=== PATIENT | male | born 1975 | race African-American/Black ===

== ENCOUNTER 2016-05-26 22:26 | Emergency (ER) | payer MEDICAID ==
[~2016-05-26] VITALS: Ht 188 cm; Wt 68.0 kg
[2016-05-26] MEDS ORDERED: ADALAT10 MG ORAL (22:42)
[2016-05-26] MEDS ORDERED: CATAPRES0.1 MG ORAL (22:42)
[2016-05-26] MEDS ORDERED: LOSARTAN POTASS25 MG ORAL (22:42)
[2016-05-26] MEDS ORDERED: HYDROCORTISONE30 G1 TP (22:57)
[2016-05-26] MEDS ORDERED: HYDROXYZINE HCL25 M1 PO (22:57)
[2016-05-26] MEDS ORDERED: CLOTRIMAZOLE15 GM TOPIC (22:57)
[2016-05-26 23:07] VITALS: BP 168/111
[2016-05-26 23:15] VITALS: BP 168/111
--- NOTE | 2016-05-26 23:41 | Emergency Room Report ---
History of Present Illness General Chief Complaint: Skin Rash/Abscess Source: Patient Present Illness HPI Patient is a 40-year-old male who presented after increased generalized itchy skin rash. Rashes noted be more prevalent in trunk region. Patient reported having a markedly itchiness which she was not relieved by Benadryl. Patient had a history of peritoneal dialysis. The patient denied any fever. He denied abdominal pain. He had not been vomiting. Patient recent abdominal surgery. He denied any current medications which are new. Allergies: Coded Allergies: ALBUTEROL (Verified Allergy, Unknown, 05/26/16) Patient History Past Medical History: see triage record Reviewed Nursing Documentation: PMH: Agreed, PSxH: Agreed Nursing Documentation-PMH Past Medical History: No History, Except For Hx Hypertension: Yes - Chronic kidney failure Review of Systems All Other Systems: negative except mentioned in HPI Physical Exam Vital Signs Date Time Temp Pulse Resp B/P Pulse Ox O2 Delivery O2 Flow Rate FiO2 05/26/16 22:33 98.1 83 14 185/130 100 Room Air General Appearance: well appearing, no apparent distress, alert, GCS 15, non- toxic Head: normocephalic, atraumatic ENT: hearing grossly normal, normal voice Neck: full range of motion, supple Respiratory: no respiratory distress, speaking full sentences Musculoskeletal: normal inspection, no calf tenderness Neurologic: normal inspection, alert, oriented x3, responsive, 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 Differential diagnosis included was not limited to Whitfield-Raimundo syndrome, urticaria, erythema multiforme, contact dermatitis. Patient's benign exam and does not appear to require any further imaging or laboratory testing at this time. The patient was noted to have some scrotal lesions which appear to be a similar however he's been giving prescription for antifungal cream. The patient is advised to follow up with primary care doctor in 1-2 days. Patient is advised to return if any worsening condition or if any changes in status that are concerning. The patient was also advised to return if any changes in skin color or fever Last Vital Signs Date Time Temp Pulse Resp B/P Pulse Ox O2 Delivery O2 Flow Rate FiO2 05/26/16 23:15 98.1 70 16 168/111 100 Room Air Status: unchanged Disposition: HOME, SELF-CARE Condition: Stable Scripts Hydrocortisone Acetate 2.5% Oint (HYDROCORTISONE ACETATE 2.5% OINT) Y Oint 30 GM TP DAILY, #30 GM Prov: Moshe Thurston 05/26/16 Clotrimazole* (LOTRIMIN*) 15 Gm Cream..g. 1 APPLIC TOPIC TWICE A DAY, #15 GM Prov: Moshe Thurston 05/26/16 Hydroxyzine Hcl (HYDROXYZINE HCL) 25 Mg Tablet 25 MG PO NEEDED EVERY 6 HR for Itching, #30 TAB Prov: Moshe Thurston 05/26/16 Referrals: NOT CHOSEN [facility]/,REFERRING (PCP) Patient Instructions: Pruritus Moshe Thurston May 26, 2016 23:41
== END 2016-05-26 23:24 | disposition home or self-care (01) ==
LOC: EMR 22:57
DX: R21 Rash and other nonspecific skin eruption (principal)
CPT/HCPCS: 99284

== ENCOUNTER 2016-09-02 21:02 | Inpatient (IN) | payer BC, OTHER ==
[~2016-09-02] VITALS: Ht 188 cm; Wt 65.3 kg
[~2016-09-02 21:02] MED LIST: ADALAT10 MG ORAL; CATAPRES0.1 MG ORAL; CLOTRIMAZOLE15 GM TOPIC; HYDROCORTISONE30 G1 TP; HYDROXYZINE HCL25 M1 PO; LOSARTAN POTASS25 MG ORAL
[2016-09-02] MEDS ORDERED: HYDROmorphone 1mg/ml Carpuject IVP ONE (21:30)
[2016-09-02 21:43] LABS: BASOPHILS % (AUTO) 0.6 % (0.0-2.0); EOSINOPHILS % (AUTO) 1.3 % (0.0-3.0); LYMPHOCYTES % (AUTO) 13.5 % (20.0-45.0); MEAN CORPUSCULAR HEMOGLOBIN 29.9 PG (27.0-31.0); MEAN CORPUSCULAR HGB CONC 33.4 G/DL (32.0-36.0); MEAN CORPUSCULAR VOLUME 89 FL (80-99); MONOCYTES % (AUTO) 4.4 % (1.0-10.0); NEUTROPHILS % (AUTO) 80.1 % (45.0-75.0); PLATELET COUNT 159 K/UL (150-450); RED BLOOD COUNT 4.33 M/UL (4.70-6.10); RED CELL DISTRIBUTION WIDTH 12.9 % (11.6-14.8); WHITE BLOOD COUNT 8.8 K/UL (4.8-10.8)
[2016-09-02 21:51] LABS: INR 1.1 (0.9-1.1); PROTHROMBIN TIME 10.7 SEC (9.30-11.50)
[2016-09-02 21:54] LABS: ALBUMIN/GLOBULIN RATIO 1.3 (1.0-2.7); CALCIUM 9.1 mg/dL (8.6-10.2); CREATININE 7.4 mg/dL (0.7-1.2); GLOMERULAR FILTRATION RATE 10.1 mL/min (>60); POTASSIUM 4.4 mEQ/L (3.4-4.9); TOTAL PROTEIN 6.4 g/dL (6.6-8.7)
[2016-09-02 22:39] VITALS: BP 136/87
[2016-09-02 22:52] LABS: APPEARANCE,URINE CLEAR; KETONES,URINE NEGATIVE (NEGATIVE); LEUKOCYTE ESTERASE ,URINE NEGATIVE (NEGATIVE); NITRITE,URINE NEGATIVE (NEGATIVE); PH,URINE 5 (4.5-8.0); PROTEIN,URINE 2+ (NEGATIVE); UROBILINOGEN,URINE NORMAL MG/DL (0.0-1.0)
[2016-09-02 22:58] LABS: WBC,URINE 0-2 /HPF (0 - 0)
[2016-09-02 22:59] LABS: BACTERIA,URINE FEW /HPF
[2016-09-02] MEDS ORDERED: RENA-VITE TABL0.8 M1 PO (23:45)
[2016-09-03] MEDS ORDERED: Ertapenem 1 GM in NS 55 ML IV ONE (00:15)
[2016-09-03] MEDS ORDERED: Tubing IV Cassette IV ONE (00:18)
[2016-09-03] MEDS ORDERED: Ertapenem (INVanz) Inj ONE (00:18)
[2016-09-03] MEDS ORDERED: NS 55 ML IV ONE (00:18)
[2016-09-03] MEDS ORDERED: HYDROmorphone 1mg/ml Carpuject IVP ONE (00:30)
[2016-09-03 00:36] VITALS: BP 134/83
--- NOTE | 2016-09-03 01:37 | Emergency Room Report ---
History of Present Illness General Chief Complaint: Abdominal Pain Source: Patient Present Illness HPI This is a 41-year-old male with a history of renal failure on peritoneal dialysis. Since been on peritoneal dialysis, he has several complication. He had to have revision of his peritoneal dialysis catheter. He has several episodes of SBP. He presents with chief complaint of abdominal pain. Onset was acute and occurred this evening. This occur after try to do peritoneal dialysis. He said that he could not drain any fluid. Pain was severe. No fever or chills. Henderson nauseous but no vomiting. No diarrhea. Pain is 10 out of 10. Diffuse in nature. Similar to previous episode of peritonitis. Allergies: Coded Allergies: ALBUTEROL (Verified Allergy, Unknown, 05/26/16) Patient History Past Medical History: see triage record, old chart reviewed, renal disease Past Surgical History: other Pertinent Family History: none Social History: Denies: smoking Immunizations: other Reviewed Nursing Documentation: PMH: Agreed, PSxH: Agreed Nursing Documentation-PMH Hx Hypertension: Yes - Chronic kidney failure Hx Dialysis: Yes - PERITONEAL DIALYSIS Review of Systems Eye: Denies: blurred vision, eye pain ENT: Denies: ear pain, nose congestion, throat swelling Respiratory: Denies: cough, shortness of breath Cardiovascular: Denies: chest pain, palpitations Gastrointestinal: Reports: abdominal pain, Denies: diarrhea, nausea, vomiting Musculoskeletal: Denies: back pain, joint pain Skin: Denies: rash Neurological: Denies: headache, numbness Endocrine: Denies: increased thirst, increased urine Hematologic/Lymphatic: Denies: easy bruising All Other Systems: negative except mentioned in HPI Physical Exam Vital Signs Date Time Temp Pulse Resp B/P Pulse Ox O2 Delivery O2 Flow Rate FiO2 09/02/16 20:59 97.2 80 16 128/74 94 Room Air vitals normal Sp02 EP Interpretation: reviewed, normal General Appearance: well appearing, alert, moderate distress - From pain Head: normocephalic, atraumatic Eyes: bilateral eye EOMI, bilateral eye PERRL ENT: hearing grossly normal, normal pharynx Neck: full range of motion, supple, no meningismus Respiratory: chest non-tender, lungs clear, normal breath sounds Cardiovascular #1: regular rate, rhythm, no murmur Gastrointestinal: normal bowel sounds, no mass, no organomegaly, no bruit, non- distended, tenderness - Diffuse in nature Musculoskeletal: back normal, gait/station normal, normal range of motion Psychiatric: mood/affect normal Skin: warm/dry Medical Decision Making Diagnostic Impression: Primary Impression: Abdominal pain Qualified Codes: R10.84 - Generalized abdominal pain Additional Impression: SBP (spontaneous bacterial peritonitis) ER Course Patient with abdominal pain most likely secondary to SBP. He was unable to give us any peritoneal fluid for culture. I was unable to set up in the peritoneal dialysis for antibiotics. IV antibiotics given. Labs unremarkable. Will admit for further workup. Lab Results Impression labs at baseline CT/MRI/US Diagnostic Results CT/MRI/US Diagnostic Results : Imaging Test Ordered: CT abdomen and pelvis Impression Read by radiologist. Small bowel wall thickening and adjacent mesenteric edema. Unremarkable appendix. Gastric wall thickening. Small amount of free fluid. Last Vital Signs Date Time Temp Pulse Resp B/P Pulse Ox O2 Delivery O2 Flow Rate FiO2 09/03/16 00:58 98.2 09/03/16 00:36 80 21 134/83 96 Room Air Status: improved Disposition: ADMITTED INPATIENT Condition: Serious Referrals: [facility],REFERRING (PCP) CARROLL FAM M.D. September 03, 2016 01:37
[2016-09-03 01:58] VITALS: BP 126/77
[2016-09-03] MEDS ORDERED: Zolpidem 5mg tab ORAL PRN (04:15)
[2016-09-03] MEDS: metroNIDAZOLE 500mg 100 ML IVPB SCH ×2 (06:18→06:53)
[2016-09-03] MEDS: Morphine Sulfate 2mg/ml Inj IVP PRN ×3 (06:52→14:37)
[2016-09-03 08:00] VITALS: BP 131/86
--- NOTE | 2016-09-03 08:40 | Diagnostic Imaging Report ---
Indications: Severe lower midline abdominal pain for one day Technique: Continuous helical CT imaging of the abdomen and pelvis was performed with automatic exposure control on a Siemens sensation [address] scanner. Axial, coronal, sagittal images reconstructed at 3 mm slice thickness. No oral or IV contrast was administered per requesting physician's order, despite no contraindications listed. CTDI volume(s): 11 mGy Total DLP: 565 mGy-cm Findings: Comparison: None Lack of oral and IV contrast limits evaluation. Multiple small bowel loops demonstrate varying degrees of distention and fluid content. Mural thickening not excludable. No discrete transition point. Tubular structure apparently emanating from the cecal tip, adjacent to but separate from the terminal ileum measures 8 mm in diameter. Its distal end cannot be discerned. Associated mild mural thickening not excludable. No obvious adjacent stranding. Minimal ascites. Mild diffuse mesenteric edema. Few small intraperitoneal gas bubbles midline anterior lower abdomen/pelvis. No obvious extraluminal loculated fluid collections. Peritoneal dialysis catheter in lower abdomen and pelvis. Apparent mild diffuse mural thickening of urinary bladder. Both kidneys atrophic. Remainder visualized pelvic anatomy demonstrates no other obvious acute abnormality. Lung bases and adjacent pleural surfaces clear. No focal skeletal abnormality identified IMPRESSION: Small bowel findings as described, nonspecific, not overtly obstructive in appearance, favor ileus. Underlying enteritis must be considered. Partial visualization of what may be the appendix, without overt acute inflammatory change. Early/mild acute appendicitis cannot be excluded, however. Recommend repeat CT scan with full oral and IV contrast preparation for more complete evaluation Minimal ascites, diffuse mesenteric edema minimal pneumoperitoneum likely secondary to peritoneal dialysis, catheter for latter in place. Bowel perforation not entirely excludable. See above recommendation. Bilateral renal atrophy compatible with end-stage renal disease. This correlates with [facility] preliminary report.
[2016-09-03] MEDS ORDERED: Vancomycin 1gm/D5W 275ml IVPB ONE ×2 (11:00)
[2016-09-03] MEDS: Losartan 50mg tab ORAL SCH (11:56)
[2016-09-03 12:00] VITALS: BP 155/94
[2016-09-03] MEDS ORDERED: Zosyn 2.25 gm in D5W 55ml IV SCH (13:00)
--- NOTE | 2016-09-03 13:51 | General Progress Note ---
Progress Note Progress Note chart reviewed, pt examined, consult dictated. Impression: spontaneous peritonitis due to peritoneal dialysis, doubt appendicitis. Plan: repeat abdominal CT with oral contrast. Jeff Roldan MD September 03, 2016 13:51
[2016-09-03] MEDS ORDERED: Tubing IV Secondary IV ONE (14:19)
[2016-09-03] MEDS ORDERED: NS 275ml ONE (14:19)
[2016-09-03 15:33] LABS: BASOPHILS % (AUTO) 0.3 % (0.0-2.0); EOSINOPHILS % (AUTO) 1.3 % (0.0-3.0); LYMPHOCYTES % (AUTO) 11.8 % (20.0-45.0); MEAN CORPUSCULAR VOLUME 87 FL (80-99); MEAN PLATELET VOLUME 7.2 FL (6.5-10.1); MONOCYTES % (AUTO) 5.4 % (1.0-10.0); NEUTROPHILS % (AUTO) 81.2 % (45.0-75.0); PLATELET COUNT 172 K/UL (150-450); RED BLOOD COUNT 4.35 M/UL (4.70-6.10); RED CELL DISTRIBUTION WIDTH 12.4 % (11.6-14.8); WHITE BLOOD COUNT 9.3 K/UL (4.8-10.8)
[2016-09-03 15:47] LABS: CALCIUM 9.1 mg/dL (8.6-10.2); CREATININE 6.1 mg/dL (0.7-1.2); GLOMERULAR FILTRATION RATE 12.5 mL/min (>60); POTASSIUM 4.4 mEQ/L (3.4-4.9)
[2016-09-03 16:00] VITALS: BP 138/83
--- NOTE | 2016-09-03 19:00 | History and Physical Report ---
DATE OF ADMISSION: 09/03/2016 REASON FOR ADMISSION: Abdominal pain and possible peritonitis. HISTORY OF PRESENT ILLNESS: This is a 41-year-old male who has end-stage renal disease, on peritoneal dialysis. The patient has had revision of his catheter in the past. The patient has had a history of peritonitis in the past. The patient noted acute onset of abdominal pain. The patient notes that he could not drain any fluid. He had no fever or chills. He did have some nausea. PAST MEDICAL HISTORY: End-stage renal disease. MEDICATIONS: Noted. ALLERGIES: Noted. SOCIAL HISTORY: The patient apparently lives at home with his brother. PHYSICAL EXAMINATION: GENERAL: A well-developed male, now pain free. VITAL SIGNS: Stable. The patient is afebrile. LUNGS: Clear. CARDIOVASCULAR: S1 and S2. Regular rate and rhythm. ABDOMEN: Slight tenderness, but no rebound. LABORATORY DATA: All reviewed. White count is normal at 8.8. Creatinine is 7.4. IMPRESSION: History of end-stage renal disease, on peritoneal dialysis, concern for peritonitis, and concern for mesenteric edema by CT. RECOMMENDATIONS: Admit. Empiric antibiotics. Pain control as outlined. Renal and ID evaluation. Surgical evaluation. Stabilize and discharge once improved. Mushtaq Crockett M.D. DR: TERESITA JOB#: [id number] CC: [place]
[2016-09-03 20:00] VITALS: BP 143/89
[2016-09-03] MEDS: Norco 10mg/325mg tab ORAL PRN (21:37)
[2016-09-03] MEDS: Zosyn 2.25 gm in D5W 55ml IV SCH (21:37)
--- NOTE | 2016-09-03 22:30 | Consultation ---
DATE OF CONSULTATION: 09/03/2016 This consult is for coverage of Dr. Mina. PRIMARY ATTENDING PHYSICIAN: Mushtaq Crockett M.D. REASON FOR CONSULTATION: Peritonitis. HISTORY OF PRESENT ILLNESS: The patient is a 41-year-old male admitted today complaining of abdominal pain. The patient has a history of end-stage renal disease and was on peritoneal dialysis for two years and a history of infection of dialyzed tube before. He had a shaking chill last night. PAST MEDICAL HISTORY: As mentioned, end-stage renal disease, on peritoneal dialysis and hypotension. MEDICATIONS: Zosyn, vancomycin, losartan, nifedipine, morphine, Protonix, Flagyl, Ambien, and Mylanta. ALLERGIES: To albuterol. SOCIAL HISTORY: He lives at home. He is a smoker, but varies, when he is stressed he takes one pack a day. He had a history of drug abuse in the past. Denies alcohol abuse. Not . REVIEW OF SYSTEMS: No headache. No sore throat. He has abdominal pain that is generalized, had nausea, but no vomiting. No diarrhea. PHYSICAL EXAMINATION: GENERAL APPEARANCE: Seems to be thin VITAL SIGNS: Temperature 98.2 degrees, pulse 85, blood pressure 155/94. HEAD AND NECK: Slightly whitish tongue. HEART: S1 and S2, regular. LUNGS: Clear. ABDOMEN: Soft, flat, and tender. There is a peritoneal dialysis catheter on the left side of the abdomen. EXTREMITIES: He has no edema. LABORATORY AND DIAGNOSTIC DATA: WBC 8.8, hemoglobin 12.9, hematocrit 38.7, and platelets 159,000. Sodium 140, potassium 4.4, chloride 102, bicarbonate 19, BUN 59, creatinine 7.4, and glucose 124. CT scan of the abdomen and pelvis showed multiple small bowel loops extension and mural thickening. IMPRESSION: Abdominal pain in a patient, who has a history of peritonitis before. The patient has end-stage renal disease, on peritoneal dialysis and has hypertension. RECOMMENDATIONS: We will continue with Zosyn and vancomycin, discontinue Flagyl. He needs to obtain culture and dialyze with . At the end of my exam, I thank Dr. Crockett for involving me in the care of this patient. Sumanth Robles M.D. DR: Suri JOB#: [id number] CC:
--- NOTE | 2016-09-03 22:30 | Consultation ---
DATE OF CONSULTATION: 09/03/2016 SURGICAL CONSULTATION CONSULTING PHYSICIAN: Jeff Roldan M.D. REASON FOR CONSULTATION: Abdominal pain, possible bacterial peritonitis. HISTORY OF PRESENT ILLNESS: This 41-year-old male with history of chronic renal failure, has been on peritoneal dialysis. The patient has had previous revisions of his peritoneal dialysis catheter due to several episodes of spontaneous bacterial peritonitis. The patient was trying to instill dialysis the dialysate last night when he developed acute generalized abdominal pain. He was unable to drain any of the fluid. The pain was severe. He denied any symptoms of fever or chills. He felt some nausea, but no vomiting. He denied any problems with diarrhea. The patient has had similar episodes in the past maybe two occasions of peritonitis. ALLERGIES: Albuterol. MEDICATIONS: Include clonidine 0.1 mg daily, folic acid/vitamin-B complex 0.8 mg daily, hydroxyzine 25 mg daily as needed itching, losartan 25 mg daily, and nifedipine 10 mg daily. SOCIAL HISTORY: Tobacco half a pack per day. Alcohol, none. FAMILY HISTORY: Positive for hypertension in the patient's mother. The patient's grandfather had renal disease as well. REVIEW OF SYSTEMS: Positive for asthma. There is no history of heart disease other than hypertension. There is no history of hepatitis. The patient has been on dialysis since January 2014. The cause of his renal failure is unknown to the patient. PHYSICAL EXAMINATION: GENERAL: Reveals a slender male, complaining of abdominal pain. VITAL SIGNS: Temperature 97.5, blood pressure 155/94, pulse 87, and respirations 20. HEENT: Normocephalic. Pupils are equal and reactive to light. There was no scleral icterus. NECK: Supple without adenopathy. LUNGS: Clear. HEART: Showed a regular rhythm without murmurs or gallops. ABDOMEN: Slightly protuberant. There is a peritoneal dialysis catheter in place arising from the left lower abdomen. Palpation reveals tenderness in both lower quadrants with mild rebound referred to the suprapubic region. EXTREMITIES: Showed no clubbing, cyanosis, or edema. Peripheral pulses were present. LABORATORY AND DIAGNOSTIC DATA: CBC from last night showed a white blood count of 8800, hemoglobin 12.9 g%, hematocrit 38.7%, and platelet count 159,000. Clinical chemistry showed a sodium of 140, potassium 4.4, chloride 102, bicarbonate 19, BUN 59, creatinine 7.4, and calcium 9.1. Total bilirubin 0.2, SGOT 8, SGPT 10, and alkaline phosphatase 67. Lipase was slightly elevated to 128. A CT scan of the abdomen taken last night showed partial visualization of what may be the appendix. There was no overt inflammatory reaction. There was minimal ascites. There was diffuse mesenteric edema as well as a minimal pneumoperitoneum, likely secondary to peritoneal dialysis. Bilateral renal atrophy compatible with end-stage renal disease. IMPRESSION: 1. Abdominal pain. 2. Spontaneous bacterial peritonitis from peritoneal dialysis, doubt appendicitis. PLAN: We will repeat a CT scan with oral contrast. He should be kept on parenteral antibiotics for now. Jeff Roldan M.D. DR: JUNAID JOB#: [id number] CC:
[2016-09-04] MEDS: Norco 10mg/325mg tab ORAL PRN ×2 (06:04→14:02)
[2016-09-04] MEDS: Zosyn 2.25 gm in D5W 55ml IV SCH ×2 (06:05→14:02)
[2016-09-04] MEDS ORDERED: Vancomycin 1gm/D5W 275ml IVPB ONE ×2 (06:30)
[2016-09-04 08:09] VITALS: BP 134/90
--- NOTE | 2016-09-04 08:31 | Consultation ---
DATE OF CONSULTATION: RENAL CONSULTATION: REFERRING PHYSICIAN: Mushtaq Crockett M.D. REASON FOR CONSULTATION: ESRD, on peritoneal dialysis. HISTORY OF PRESENT ILLNESS: This is a 41-year-old man with a history of hypertension and ESRD, on peritoneal dialysis [facility] for two years. The patient presented to the ER because of the abdominal pain for one day with nausea and vomiting. According to the patient, he has been on peritoneal dialysis [facility] for two years, and the last dialysis was yesterday and he drained out ultrafiltration of 400 mL yesterday evening with a clear fluid according to the patient. The patient had frequent attack of peritonitis before and the patient still refusing any hemodialysis because he does not want any catheter in the neck or fistulas in the arm even though he knows that he has a high risk for frequent peritonitis with peritoneal dialysis. The patient has found to have appendicitis in the CAT scan. The patient does not have any fever this morning and no more nausea and vomiting this morning. Denies any chest pain, any shortness of breath, fever, or chills. PAST MEDICAL HISTORY: 1. Hypertension. 2. ESRD on peritonitis. MEDICATIONS: Reviewed. ALLERGIES: Albuterol. SOCIAL HISTORY: Resides at home. Denies smoking, alcohol, and drug use. FAMILY HISTORY: Noncontributory. PHYSICAL EXAMINATION: VITAL SIGNS: Blood pressure of 131/86, heart rate 85, respiratory rate 20, temperature 98.2 degrees, and oxygen saturation is 97% on room air. GENERAL: On examination, the patient is not in acute distress. Alert, awake, and oriented x3. HEENT: Atraumatic and normocephalic. NECK: Supple. Trachea is in the midline. LUNGS: Clear to auscultate bilaterally. No rales. No rhonchi. ABDOMEN: Soft and mild tender. No rebound. No guarding. Bowel sounds present. EXTREMITIES: No edema. LABORATORY AND DIAGNOSTIC DATA: White count of 8.8, hemoglobin 12.9, hematocrit 38.7, and platelet count 159,000. Sodium of 140, potassium 4.4, chloride 102, bicarb 19, BUN 59, and creatinine 7.4. Calcium is 9.1. Liver function tests is normal. UA showed a specific gravity of 1.010, protein 2+, negative glucose, negative ketones, 3+ occult blood, 2 to 4 RBCs, and 0 to 2 WBCs and then the CAT scan of the abdomen showed that small bowel findings not overly obstruction in appearance, favor ileus, underlying enteritis must be considered and appendicitis cannot be excluded and minimal ascites and diffuse mesenteric edema, minimal pneumoperitoneum likely secondary to peritoneal dialysis. ASSESSMENT AND PLAN: 1. End-stage renal disease, on peritoneal dialysis with continuous cycling peritoneal dialysis. 2. Anemia of chronic kidney disease. 3. Acute appendicitis in the CAT scan of the abdomen and also enteritis. 4. Bacterial peritonitis. 5. Hypertension. PLAN: I discussed with the patient that peritoneal dialysis is not suitable and also contraindicated with abdominal infection on the examination with appendicitis and enteritis. The patient has to change the temporary hemodialysis during this time with abdominal infection and also the patient need ID consult and surgical consult. The patient refused hemodialysis because he does not want any neckline or he does not want any AV fistula. Even I explained to him that we are going put a temporary line and he still refused it and we also need a surgical clearance before we initiate peritoneal dialysis because of this appendicitis. The patient wants to talk to the surgeon first before he makes a decision and will need antibiotics cefepime and vancomycin. Thank you for the consultation and we will follow. Linda Martinez M.D. DR: Lawanda JOB#: [id number] CC:
--- NOTE | 2016-09-04 08:36 | Diagnostic Imaging Report ---
Indication: Abdominal pain, 41-year-old male with history of renal failure on peritoneal dialysis. Technique: Spiral acquisitions obtained through the abdomen and pelvis. Patient given oral contrast. No IV contrast utilized, per referring physician request.. Multiplanar reconstructions were generated. Total dose length product 696 mGycm. CTDIvol(s) 12 mGy. Dose reduction achieved using automated exposure control Comparison: 09/02/2016 Findings: Again demonstrated is a peritoneal dialysis catheter, entering via the left lower quadrant, tip coiled in the right paracolic gutter. No fluid is seen surrounding the catheter. Trace fluid is again seen in the right paracolic gutter and around the tip of the right hepatic lobe, decreased from the prior exam. There is mild congestion of the mesenteric fat. Previous distended fluid-filled small bowel loops are no longer evident, and ingested contrast is seen within distal small bowel and within the colon all the way to the rectum. The appendix is slightly prominent, unchanged from the previous study.. No evidence of diverticulosis or diverticulitis. No free intraperitoneal air. Previously demonstrated intraperitoneal gas bubbles are no longer evident There is equivocal mild gastric wall thickening, probably artifact of under distention. The distal esophagus is unremarkable. Lack of IV contrast limits assessment of the solid organs. The liver, gallbladder, bile ducts, pancreas, spleen, adrenals are unremarkable. The kidneys are mildly atrophic. Left kidney demonstrates a 12 mm upper pole cyst. The bladder is equivocally mildly thickwalled. No pelvic mass or adenopathy. No retroperitoneal or mesenteric mass or adenopathy. There are atelectatic changes at the left lung base. The bones are unremarkable. Impression: Since exam of the previous day, interim decrease in prominence/dilatation of previously demonstrated fluid filled small bowel loops, may reflect improving ileus or enteritis Trace free intraperitoneal fluid, likely related to presence of peritoneal dialysis catheter Stable prominent appendix, probably baseline for this patient, early appendicitis not completely excludable Equivocal mild gastric wall thickening, probably artifact of under distention Equivocal mild abdomen distention, cystitis not excludable Left basilar pulmonary atelectatic changes Mild mesenteric edema, nonspecific, unchanged Mild renal atrophy, consistent with end-stage renal disease, as previously described Left upper pole renal cyst No acute or new abnormality since previous study This agrees with the preliminary interpretation provided overnight by Dr. Link The CT scanner at [facility] is accredited by the [employer] and the scans are performed using protocols designed to limit radiation exposure to as low as reasonably achievable to attain images of sufficient resolution adequate for diagnostic evaluation.
--- NOTE | 2016-09-04 08:42 | General Progress Note ---
Assessment/Plan Assessment/Plan IMPRESSION: History of end-stage renal disease, on peritoneal dialysis, concern for peritonitis, abdominal pain, possible melena PLAN CT noted defer to surgery defer to renal GI eval for ? melena antibiotics per ID dialysis per renal Subjective Allergies: Coded Allergies: ALBUTEROL (Verified Allergy, Unknown, 05/26/16) Subjective reported melena reduced abdominal pain all appreciated Objective Last 24 Hour Vital Signs Date Time Temp Pulse Resp B/P Pulse Ox O2 Delivery O2 Flow Rate FiO2 09/04/16 08:09 97.2 79 21 134/90 97 Room Air 09/03/16 20:00 99.9 85 20 143/89 98 Room Air 09/03/16 16:00 99.3 90 20 138/83 97 Room Air 09/03/16 12:00 97.5 87 20 155/94 99 Room Air 09/03/16 11:56 155/94 09/03/16 09:30 85 131/86 Intake and Output 09/03/16 09/04/16 19:00 07:00 Intake Total 100 ml 425 ml Output Total 300 ml Balance 100 ml 125 ml Intake Oral 425 ml IV Total 100 ml Output Urine Total 300 ml # Voids 5 # Bowel Movements 2 Laboratory Tests 09/03/16 15:00: White Blood Count 9.3, Red Blood Count 4.35L, Hemoglobin 12.2L, Hematocrit 38.0L , Mean Corpuscular Volume 87, Mean Corpuscular Hemoglobin 28.0, Mean Corpuscular Hemoglobin Concent 32.0, Red Cell Distribution Width 12.4, Platelet Count 172, Mean Platelet Volume 7.2, Neutrophils (%) (Auto) 81.2H, Lymphocytes ( %) (Auto) 11.8L, Monocytes (%) (Auto) 5.4, Eosinophils (%) (Auto) 1.3, Basophils (%) (Auto) 0.3, Sodium Level 133L, Potassium Level 4.4, Chloride Level 97L, Carbon Dioxide Level 18L, Anion Gap 18H, Blood Urea Nitrogen 55H, Creatinine 6.1H, Estimat Glomerular Filtration Rate 12.5, Glucose Level 100, Calcium Level 9.1 09/04/16 02:00: Stool Occult Blood Negative 09/04/16 05:30: Random Vancomycin Level 14.9 Height (Feet): 6 Height (Inches): 2.00 Weight (Pounds): 144 Objective GENERAL: A well-developed male, with minimal pain LUNGS: Clear. CARDIOVASCULAR: S1 and S2. Regular rate and rhythm. ABDOMEN: Slight tenderness, but no rebound. diffuse; positive bowel sounds RICHARD LIU September 04, 2016 08:42
[2016-09-04] MEDS: Losartan 50mg tab ORAL SCH (09:11)
[2016-09-04 11:40] VITALS: BP 126/78
--- NOTE | 2016-09-04 12:35 | Infectious Diseases Prog Note ---
Assessment/Plan Assessment/Plan A; Suspected peritonitis ESRD on peritoneal dialysis HPN P: Continue Zosyn & Vancomycin will f/u cultures Subjective ROS Limited/Unobtainable: No Constitutional: Reports: no symptoms, other - feels better Respiratory: Reports: no symptoms Cardiovascular: Reports: no symptoms Gastrointestinal/Abdominal: Reports: other - pain decreased Genitourinary: Reports: no symptoms Musculoskeletal: Reports: no symptoms Allergies: Coded Allergies: ALBUTEROL (Verified Allergy, Unknown, 05/26/16) Objective Vital Signs Last 24 Hour Vital Signs Date Time Temp Pulse Resp B/P Pulse Ox O2 Delivery O2 Flow Rate FiO2 09/04/16 11:40 98.6 84 21 126/78 97 Room Air 09/04/16 09:11 79 134/90 09/04/16 09:11 134/90 09/04/16 08:09 97.2 79 21 134/90 97 Room Air 09/03/16 20:00 99.9 85 20 143/89 98 Room Air 09/03/16 16:00 99.3 90 20 138/83 97 Room Air Height (Feet): 6 Height (Inches): 2.00 Weight (Pounds): 144 General Appearance: no acute distress HEENT: mucous membranes moist Respiratory/Chest: lungs clear Cardiovascular: normal rate Abdomen: soft, non tender, other - peritoneal dialysis catheter Extremities: no edema Neurologic/Psychiatric: alert, oriented x 3, responsive Laboratory Tests Test 09/03/16 15:00 09/04/16 02:00 09/04/16 05:30 White Blood Count 9.3 K/UL (4.8-10.8) Red Blood Count 4.35 M/UL (4.70-6.10) L Hemoglobin 12.2 G/DL (14.2-18.0) L Hematocrit 38.0 % (42.0-52.0) L Mean Corpuscular Volume 87 FL (80-99) Mean Corpuscular Hemoglobin 28.0 PG (27.0-31.0) Mean Corpuscular Hemoglobin Concent 32.0 G/DL (32.0-36.0) Red Cell Distribution Width 12.4 % (11.6-14.8) Platelet Count 172 K/UL (150-450) Mean Platelet Volume 7.2 FL (6.5-10.1) Neutrophils (%) (Auto) 81.2 % (45.0-75.0) H Lymphocytes (%) (Auto) 11.8 % (20.0-45.0) L Monocytes (%) (Auto) 5.4 % (1.0-10.0) Eosinophils (%) (Auto) 1.3 % (0.0-3.0) Basophils (%) (Auto) 0.3 % (0.0-2.0) Sodium Level 133 mEQ/L (135-145) L Potassium Level 4.4 mEQ/L (3.4-4.9) Chloride Level 97 mEQ/L (98-107) L Carbon Dioxide Level 18 mEQ/L (20-30) L Anion Gap 18 (5-15) H Blood Urea Nitrogen 55 mg/dL (7-23) H Creatinine 6.1 mg/dL (0.7-1.2) H Estimat Glomerular Filtration Rate 12.5 mL/min (>60) Glucose Level 100 mg/dL (74-106) Calcium Level 9.1 mg/dL (8.6-10.2) Stool Occult Blood Negative (NEGATIVE) Random Vancomycin Level 14.9 ug/mL Current Medications Medications (Trade) Dose Ordered Sig/Zackary Route PRN Reason Start Time Stop Time Status Last Admin Dose Admin Acetaminophen (Tylenol) 650 mg Q4H PRN ORAL Mild Pain/Temp > 100.5 09/03/16 04:15 10/03/16 04:14 Acetaminophen/ Hydrocodone Bitart ([place] 10/325) 1 ea Q4H PRN ORAL Pain Scale (6-10) 09/03/16 21:30 09/10/16 21:29 09/04/16 06:04 Al Hydroxide/Mg Hydroxide (Mylanta) 30 ml EVERY 4 HOURS PRN ORAL Abdominal cramps 09/03/16 04:15 10/03/16 04:14 Losartan Potassium (Cozaar) 100 mg DAILY ORAL 09/03/16 09:00 10/03/16 08:59 09/04/16 09:11 Morphine Sulfate (Morphine Sulfate) 2 mg Q3H PRN IVP Severe Pain (Pain Scale 7-10) 09/03/16 06:45 09/10/16 06:44 09/03/16 14:37 Nifedipine (Procardia XL) 90 mg DAILY ORAL 09/03/16 09:00 10/03/16 08:59 09/04/16 09:11 Pantoprazole (Protonix) 40 mg ACBREAKFAST ORAL 09/03/16 06:30 10/03/16 06:29 09/04/16 06:02 Piperacillin Sod/ Tazobactam Sod/ Dextrose (Zosyn/D5W) 55 ml @ 110 mls/hr Q8H IV 09/03/16 22:00 09/10/16 21:59 09/04/16 06:05 Vancomycin HCl 1 ea 1 ea DAILY PRN MISC Per rx protocol 09/03/16 09:45 10/03/16 09:44 Zolpidem Tartrate (Ambien) 5 mg HSPRN PRN ORAL Insomnia 09/03/16 04:15 10/03/16 04:14 YAZMIN LEAVITT September 04, 2016 12:35
--- NOTE | 2016-09-04 12:51 | General Surgery Progress Note ---
General Surgery-Progress Note Subjective Symptoms: improved, passing flatus, BM Additional Comments patient seen and examined at bedside. no acute events. states that he had BM and LOTS of flatus yesterday and since feels much better. no n/v/f/c. still some residual lower abdominal discomfort but no pain. Objective Last 24 Hour Vital Signs Date Time Temp Pulse Resp B/P Pulse Ox O2 Delivery O2 Flow Rate FiO2 09/04/16 11:40 98.6 84 21 126/78 97 Room Air 09/04/16 09:11 79 134/90 09/04/16 09:11 134/90 09/04/16 08:09 97.2 79 21 134/90 97 Room Air 09/03/16 20:00 99.9 85 20 143/89 98 Room Air 09/03/16 16:00 99.3 90 20 138/83 97 Room Air I&O Intake and Output 09/03/16 09/04/16 19:00 07:00 Intake Total 100 ml 425 ml Output Total 300 ml Balance 100 ml 125 ml Intake Oral 425 ml IV Total 100 ml Output Urine Total 300 ml # Voids 5 # Bowel Movements 2 Drains: other - PD Cath Cardiovascular: RSR Respiratory: clear Abdomen: soft, flat, non-tender, present bowel sounds Extremities: no edema, no tenderness Laboratory Tests Test 09/03/16 15:00 09/04/16 02:00 09/04/16 05:30 White Blood Count 9.3 K/UL (4.8-10.8) Red Blood Count 4.35 M/UL (4.70-6.10) L Hemoglobin 12.2 G/DL (14.2-18.0) L Hematocrit 38.0 % (42.0-52.0) L Mean Corpuscular Volume 87 FL (80-99) Mean Corpuscular Hemoglobin 28.0 PG (27.0-31.0) Mean Corpuscular Hemoglobin Concent 32.0 G/DL (32.0-36.0) Red Cell Distribution Width 12.4 % (11.6-14.8) Platelet Count 172 K/UL (150-450) Mean Platelet Volume 7.2 FL (6.5-10.1) Neutrophils (%) (Auto) 81.2 % (45.0-75.0) H Lymphocytes (%) (Auto) 11.8 % (20.0-45.0) L Monocytes (%) (Auto) 5.4 % (1.0-10.0) Eosinophils (%) (Auto) 1.3 % (0.0-3.0) Basophils (%) (Auto) 0.3 % (0.0-2.0) Sodium Level 133 mEQ/L (135-145) L Potassium Level 4.4 mEQ/L (3.4-4.9) Chloride Level 97 mEQ/L (98-107) L Carbon Dioxide Level 18 mEQ/L (20-30) L Anion Gap 18 (5-15) H Blood Urea Nitrogen 55 mg/dL (7-23) H Creatinine 6.1 mg/dL (0.7-1.2) H Estimat Glomerular Filtration Rate 12.5 mL/min (>60) Glucose Level 100 mg/dL (74-106) Calcium Level 9.1 mg/dL (8.6-10.2) Stool Occult Blood Negative (NEGATIVE) Random Vancomycin Level 14.9 ug/mL Plan Problems: (1) Abdominal pain Assessment & Plan: 41M acute abdominal pain. Repeat CT scan reviewed. Less bowel distention and appendix does not seem inflamed. Had BM and lots of flatus yesterday and feels much better today. Mild abdominal discomfort but no pain currently. Abdominal exam benign. ileus? vs sbo from catheter? vs bacterial peritonitis?... etiology unknown but improving. No acute surgical intervention necessary. Okay for diet Abx as per primary will continue to monitor clinically. Pete Norman September 04, 2016 12:51
--- NOTE | 2016-09-04 14:34 | Nephrology Progress Note ---
Assessment/Plan Plan Acute Peritonitis - IV ABx ESRD - on CCPD Subjective Subjective + Abdominal Pain Objective Objective Last 24 Hour Vital Signs Date Time Temp Pulse Resp B/P Pulse Ox O2 Delivery O2 Flow Rate FiO2 09/04/16 11:40 98.6 84 21 126/78 97 Room Air 09/04/16 09:11 79 134/90 09/04/16 09:11 134/90 09/04/16 08:09 97.2 79 21 134/90 97 Room Air 09/03/16 20:00 99.9 85 20 143/89 98 Room Air 09/03/16 16:00 99.3 90 20 138/83 97 Room Air Intake and Output 09/03/16 09/04/16 19:00 07:00 Intake Total 100 ml 425 ml Output Total 300 ml Balance 100 ml 125 ml Intake Oral 425 ml IV Total 100 ml Output Urine Total 300 ml # Voids 5 # Bowel Movements 2 Laboratory Tests 09/03/16 15:00: White Blood Count 9.3, Red Blood Count 4.35L, Hemoglobin 12.2L, Hematocrit 38.0L , Mean Corpuscular Volume 87, Mean Corpuscular Hemoglobin 28.0, Mean Corpuscular Hemoglobin Concent 32.0, Red Cell Distribution Width 12.4, Platelet Count 172, Mean Platelet Volume 7.2, Neutrophils (%) (Auto) 81.2H, Lymphocytes ( %) (Auto) 11.8L, Monocytes (%) (Auto) 5.4, Eosinophils (%) (Auto) 1.3, Basophils (%) (Auto) 0.3, Sodium Level 133L, Potassium Level 4.4, Chloride Level 97L, Carbon Dioxide Level 18L, Anion Gap 18H, Blood Urea Nitrogen 55H, Creatinine 6.1H, Estimat Glomerular Filtration Rate 12.5, Glucose Level 100, Calcium Level 9.1 09/04/16 02:00: Stool Occult Blood Negative 09/04/16 05:30: Random Vancomycin Level 14.9 Height (Feet): 6 Height (Inches): 2.00 Weight (Pounds): 144 Objective Cv Rr Lungs CTA Abd multiple scars. SNT. MARIA INES + ZAHIDA MUÑOZ September 04, 2016 14:34
[2016-09-04 15:54] VITALS: BP 133/83
[2016-09-04 15:58] LABS: BASOPHILS % (AUTO) 0.7 % (0.0-2.0); EOSINOPHILS % (AUTO) 3.4 % (0.0-3.0); LYMPHOCYTES % (AUTO) 7.8 % (20.0-45.0); MEAN CORPUSCULAR HEMOGLOBIN 30.3 PG (27.0-31.0); MEAN CORPUSCULAR HGB CONC 34.4 G/DL (32.0-36.0); MEAN CORPUSCULAR VOLUME 88 FL (80-99); MEAN PLATELET VOLUME 7.2 FL (6.5-10.1); MONOCYTES % (AUTO) 5.1 % (1.0-10.0); PLATELET COUNT 167 K/UL (150-450); RED BLOOD COUNT 4.11 M/UL (4.70-6.10); RED CELL DISTRIBUTION WIDTH 12.3 % (11.6-14.8); WHITE BLOOD COUNT 8.1 K/UL (4.8-10.8)
[2016-09-04 16:12] LABS: CALCIUM 9.2 mg/dL (8.6-10.2); CREATININE 6.8 mg/dL (0.7-1.2); POTASSIUM 4.9 mEQ/L (3.4-4.9); TOTAL PROTEIN 6.6 g/dL (6.6-8.7)
--- NOTE | 2016-09-04 22:06 | General Progress Note ---
Assessment/Plan Assessment/Plan GI consult Dictated Thank you Claudia Doan MD Subjective Allergies: Coded Allergies: ALBUTEROL (Verified Allergy, Unknown, 05/26/16) Objective Last 24 Hour Vital Signs Date Time Temp Pulse Resp B/P Pulse Ox O2 Delivery O2 Flow Rate FiO2 09/04/16 15:54 98.4 84 21 133/83 99 Room Air 09/04/16 11:40 98.6 84 21 126/78 97 Room Air 09/04/16 09:11 79 134/90 09/04/16 09:11 134/90 09/04/16 08:09 97.2 79 21 134/90 97 Room Air Intake and Output 09/03/16 09/04/16 19:00 07:00 Intake Total 100 ml 425 ml Output Total 300 ml Balance 100 ml 125 ml Intake Oral 425 ml IV Total 100 ml Output Urine Total 300 ml # Voids 5 # Bowel Movements 2 Laboratory Tests 09/04/16 02:00: Stool Occult Blood Negative 09/04/16 05:30: Random Vancomycin Level 14.9 09/04/16 15:20: White Blood Count 8.1, Red Blood Count 4.11L, Hemoglobin 12.5L, Hematocrit 36.3L , Mean Corpuscular Volume 88, Mean Corpuscular Hemoglobin 30.3, Mean Corpuscular Hemoglobin Concent 34.4, Red Cell Distribution Width 12.3, Platelet Count 167, Mean Platelet Volume 7.2, Neutrophils (%) (Auto) 83.0H, Lymphocytes ( %) (Auto) 7.8L, Monocytes (%) (Auto) 5.1, Eosinophils (%) (Auto) 3.4H, Basophils (%) (Auto) 0.7, Sodium Level 136, Potassium Level 4.9, Chloride Level 99, Carbon Dioxide Level 19L, Anion Gap 18H, Blood Urea Nitrogen 60H, Creatinine 6.8H, Estimat Glomerular Filtration Rate 11.0, Glucose Level 118H, Calcium Level 9.2, Total Bilirubin 0.3, Aspartate Amino Transf (AST/SGOT) 9, Alanine Aminotransferase (ALT/SGPT) 6, Alkaline Phosphatase 65, Total Protein 6.6, Albumin 3.3L, Globulin 3.3, Albumin/Globulin Ratio 1.0 09/04/16 16:00: Hepatitis B Surface Antigen [Pending], Hepatitis B Surface Antibody [Pending], Hepatitis Be Antigen [Pending], Hepatitis C Antibody [Pending] Height (Feet): 6 Height (Inches): 2.00 Weight (Pounds): 144 JOSE D DOAN September 04, 2016 22:06
[2016-09-05] MEDS ORDERED: Heparin Sod 1000 units/ml 10ml IV ONE (06:00)
--- NOTE | 2016-09-05 11:16 | Consultation ---
DATE OF CONSULTATION: NOTE: POOR AUDIO QUALITY CHIEF COMPLAINT: I was asked to see this patient for evaluation of abdominal pain. HISTORY OF PRESENT ILLNESS: The patient is a 41-year-old man with a history of abdominal pain and 1-day history of black stools. The patient denies taking any nonsteroidal antiinflammatory drugs. He does not have history of ulcers and does not drink alcohol. The patient has been for diagnosis of gastrointestinal bleeding. PAST MEDICAL HISTORY: History of hypertension, end-stage renal disease, and . MEDICATIONS: See chart for details. SOCIAL HISTORY: The patient does not drink. He smokes half-a-pack to one-pack cigarettes a day. He does not drink alcohol. FAMILY HISTORY: Positive for ulcerative colitis. REVIEW OF SYSTEMS: Negative. PHYSICAL EXAMINATION: GENERAL: This is a pleasant young man, seen in his room. HEENT: Normocephalic and atraumatic. Sclerae anicteric. Oropharynx is clear. NECK: Supple. CHEST: Clear to auscultation. CARDIOVASCULAR: Regular rate and rhythm. ABDOMEN: Soft with good bowel sounds. EXTREMITIES: Revealed no edema. LABORATORY DATA: Noted. ASSESSMENT: This patient has an acute abdominal pain as well as acute etiology. Require endoscopy to evaluate his gastrointestinal tract. The indications, risks, alternatives, and possible complications of the procedure were explained to the patient. Informed consent was obtained. The patient was subsequently the patient was left hospital against medical advice. follow up with him and . RECOMMENDATION: The patient was recommended to follow up with Gastroenterology as an outpatient . Deisi Doan M.D. DR: Gladis JOB#: [id number] CC:
--- NOTE | 2016-09-05 11:23 | Discharge Summary ---
Discharge Summary Hospital Course Date of Admission September 03, 2016 at 01:54 Date of Discharge September 04, 2016 at 19:15 Admitting Diagnosis Peritonitis, Spontaneous bacterial peritonitis RAMOS Alvarez is a 41 year old male who was admitted on September 03, 2016 at 01:54 for Peritonitis,Spontaneous Bacterial Peritonitis Hospital Course dc summary #[id number] Discharge Discharge Disposition Patient signed AMA Discharge Diagnoses: Discharge Instructions Discharge Instructions Special Instructions I have been assigned to complete a D/C Summary on this account. I was not involved in the patient management Gabby Flores NP (Vanchtein) September 05, 2016 11:23
[2016-09-05] MEDS ORDERED: Heparin 5000 units/ml inj INJ SCH (15:00)
--- NOTE | 2016-09-06 07:02 | Discharge Summary 2 SIG ---
DATE OF ADMISSION: 09/03/2016 DATE OF DISCHARGE: 09/04/2016 REASON FOR ADMISSION: 41-year-old male with a history of end-stage renal disease, on peritoneal dialysis, presented to emergency room with a complaint of abdominal pain. Since being on peritoneal dialysis, he had several complications. He had to have a revision of his peritoneal dialysis catheter. He had several episodes of spontaneous bacterial peritonitis. Onset of abdominal pain was acute , on the evening prior to coming to emergency room. The abdominal pain started after the patient tried to do peritoneal dialysis. The patient stated that he was unable to drain any fluid. Pain was severe. He felt nauseous, but no vomiting. No diarrhea. No fever. No chills. Pain was described as a diffuse in nature, 10/10 on a scale of 1 to 10. Workup in the emergency room revealed no leukocytosis. Stable hemoglobin and hematocrit. Renal parameters consistent with end-stage renal disease. Lipase - 128. Afebrile. No leukocytosis. CT of the abdomen and pelvis revealed multiple small bowel loops demonstrating varying degrees of distention and fluid content; consider ileus versus underlying enteritis. Possible early mild acute appendicitis. Bilateral renal atrophy compatible with end-stage renal disease. Minimal ascites, diffuse mesenteric edema with minimal pneumoperitoneum likely secondary to peritoneal dialysis. Bowel perforation was not completely excluded. The patient was admitted for further management. Prior to transfer to the floor, the patient was given first dose of antibiotic in the emergency department. ADMITTING DIAGNOSES: 1. Abdominal pain. 2. Suspected spontaneous bacterial peritonitis. 3. End-stage renal disease, on peritoneal dialysis. 4. Hypertension. HOSPITAL COURSE: The patient was admitted. Surgery, ID, Nephrology , and GI consults were requested. ID followed with antibiotic regimen and was waiting for blood culture. Moto Mix Operator talked to the patient with regards to obtain hemodialysis temporary access and start hemodialysis via hemodialysis access. The patient declined. He wanted to continue peritoneal dialysis and follow up with his primary pickle solution maker at [facility]. Surgeon seen the patient. Initially, he reviewed the CAT scan of the abdomen. Surgeon doubted appendicitis, but stated that the patient might have spontaneous bacterial peritonitis from peritoneal dialysis. Another CT of the abdomen was ordered. The next CT of the abdomen and pelvis revealed stable appendix, probably baseline for this patient, interim decrease in prominence/dilatation of previously demonstrated fluid-filled small-bowel loops, may reflect improving in the ileus versus enteritis. Surgeon seen the patient on the next day. The etiology of abdominal pain was still unclear. The patient had a mild abdominal discomfort, but no pain. Abdominal exam was benign. Questionable ileus versus small bowel obstruction from the catheter versus bacterial peritonitis. The patient was improving clinically. Surgeon stated that no acute surgical intervention were necessary at this time. The patient had bowel movement. The patient had flatus and felt much better. Diet was started as tolerated. Antibiotics were continued as per ID doctor. Surgeon recommended to monitor clinically. GI consult was requested for the patient's self-reported episodes of melena. While in the hospital, hemoglobin and hematocrit were closely monitored. There was an evidence of mild anemia with hemoglobin - 12.5 and hematocrit -36.3 likely secondary to anemia of chronic renal disease. No trend down in hemoglobin and hematocrit, remain at baseline. GI seen and evaluated the patient. Stool for OB ordered. Hepatitis panel was pending. LFT were stable. Blood pressure was managed with the patient's ARB and calcium channel renetta and was stable. GI and DVT prophylaxis provided. The patient decided to sign against medical advice since he did not want to have hemodialysis catheter insertion. Risk and consequences about signing against medical advice were discussed with the patient. The patient insisted and signed the form. DISCHARGE DIAGNOSES: 1. Abdominal pain, improved. 2. Suspected spontaneous bacterial peritonitis. 3. Possible ileus-resolved . 4. Possible enteritis- resolved. 5. End-stage renal disease, on peritoneal dialysis. 6. Hypertension. Mushtaq Crockett M.D. I have been assigned to dictate discharge summary on this account and I was not involved in the patient's management. Gabby Hilltoan N.PAnanda DR: ALFREDITO JOB#: [id number] CC: [place]
== END 2016-09-04 19:15 | disposition left against medical advice (07) | DRG 371 ==
LOC: EDBD 21:02 → EMR 23:01 → EDBEDREQ 09-03 01:27 → 4E 09-03 01:54
DX: K65.2 Spontaneous bacterial peritonitis (principal); N18.6 End stage renal disease; I12.0 Hypertensive chronic kidney disease with stage 5 chronic kidney disease or end stage renal disease; K56.7 Ileus, unspecified; Z99.2 Dependence on renal dialysis; K52.9 Noninfective gastroenteritis and colitis, unspecified; R10.9 Unspecified abdominal pain; J45.909 Unspecified asthma, uncomplicated; F17.200 Nicotine dependence, unspecified, uncomplicated
CPT/HCPCS: 36415; 74176; 80048; 80053; 80202; 81003; 82270; 83690; 85025; 85610; 85730; 86803; 87340; 87350; 87517; J2405

== ENCOUNTER 2017-11-22 04:22 | Emergency (ER) | payer MEDICARE, OTHER ==
[~2017-11-22] VITALS: Ht 182.9 cm; Wt 81.6 kg
[~2017-11-22 04:22] MED LIST changes: +RENA-VITE TABL0.8 M1 PO
[2017-11-22 05:00] VITALS: BP 93/60
[2017-11-22] MEDS ORDERED: Sodium Chloride 500ML 500 ML IV ONE (05:45)
[2017-11-22 05:57] LABS: EOSINOPHILS % (AUTO) 1.8 % (0.0-3.0); HEMATOCRIT 43.2 % (42.0-52.0); HEMOGLOBIN 14.1 G/DL (14.2-18.0); LYMPHOCYTES % (AUTO) 15.7 % (20.0-45.0); MEAN CORPUSCULAR VOLUME 86 FL (80-99); MONOCYTES % (AUTO) 5.4 % (1.0-10.0); NEUTROPHILS % (AUTO) 76.1 % (45.0-75.0); PLATELET COUNT 208 K/UL (150-450); RED BLOOD COUNT 5.03 M/UL (4.70-6.10)
[2017-11-22 06:14] LABS: ANION GAP 10 mmol/L (5-15); BLOOD UREA NITROGEN 51 mg/dL (7-18); CALCIUM 8.8 MG/DL (8.5-10.1); CARBON DIOXIDE 25 MMOL/L (21-32); CHLORIDE 103 MMOL/L (98-107); CREATININE 8.5 MG/DL (0.55-1.30); POTASSIUM 3.6 MMOL/L (3.5-5.1); SODIUM 138 MMOL/L (136-145)
[2017-11-22 06:27] LABS: ALANINE AMINOTRANSFERASE 28 U/L (12-78); ALBUMIN 3.1 G/DL (3.4-5.0); ALBUMIN/GLOBULIN RATIO 0.8 (1.0-2.7); ALKALINE PHOSPHATASE 52 U/L (46-116); ASPARTATE AMINO TRANSFERASE 18 U/L (15-37); BILIRUBIN,TOTAL 0.3 MG/DL (0.2-1.0); CKMB 2.1 NG/ML (0.0-3.6); CREATINE KINASE 285 U/L (26-308)
[2017-11-22] MEDS ORDERED: calciferol (06:38)
[2017-11-22] MEDS ORDERED: LOSARTAN POTASS25 MG ORAL (06:38)
[2017-11-22 07:30] VITALS: BP 99/63
--- NOTE | 2017-11-22 07:33 | Emergency Room Report ---
History of Present Illness General Chief Complaint: Dizziness Source: EMS Present Illness HPI Patient is a 42-year-old male who presented after increased dizziness. Patient gradual onset of symptoms. Associated abdominal pain. The patient felt lightheaded. The patient prior history of end-stage renal disease as well as hypertension. He is currently peritoneal dialysis. He denies any fever. He reported having some sweats. He denied any chest pain. Allergies: Coded Allergies: ALBUTEROL (Verified Allergy, Unknown, 05/26/16) Patient History Past Medical History: see triage record Reviewed Nursing Documentation: PMH: Agreed; PSxH: Agreed Nursing Documentation-PMH Past Medical History: No History, Except For Hx Hypertension: Yes Hx Asthma: Yes Hx Cancer: No Hx Dialysis: Yes - peritoneal dialysis, renal failure Hx Neurological Problems: No Review of Systems All Other Systems: negative except mentioned in HPI Physical Exam Vital Signs Date Time Temp Pulse Resp B/P (MAP) Pulse Ox O2 Delivery O2 Flow Rate FiO2 11/22/17 04:15 66 18 93/60 100 Room Air 11/22/17 05:00 97.6 97.6 Sp02 EP Interpretation: reviewed, normal General Appearance: normal inspection, well appearing, no apparent distress, alert, GCS 15 Head: atraumatic ENT: normal ENT inspection, hearing grossly normal, normal voice Neck: normal inspection, full range of motion, supple, no bony tend Respiratory: normal inspection, lungs clear, normal breath sounds, no respiratory distress, no retraction, no wheezing Cardiovascular #1: regular rate, rhythm, no edema Gastrointestinal: normal inspection, normal bowel sounds, non tender, soft, no guarding, no hernia Genitourinary: no CVA tenderness Musculoskeletal: normal inspection, back normal, normal range of motion Neurologic: normal inspection, alert, responsive, speech normal Psychiatric: normal inspection, judgement/insight normal, mood/affect normal Skin: normal inspection, normal color, no rash Medical Decision Making Diagnostic Impression: Primary Impression: Pancreatitis Additional Impression: Peritoneal dialysis status ER Course Patient presented for generalized weakness. Differential diagnosis included was not limited to anemia, urinary tract infection, electrolyte abnormality, hypothyroidism, myocardial infarction, myasthenia gravis, dehydration, among others. Because of complexity of patient's case laboratory testing was ordered. The patient appears to have a relatively benign abdominal exam. The patient started on IV fluids. He was noted to have mildly decreased blood pressure. The patient was discussed with Dr. Hunt for transfer due to need for peritoneal dialysis capability Labs Test 11/22/17 05:10 White Blood Count 8.0 K/UL (4.8-10.8) Red Blood Count 5.03 M/UL (4.70-6.10) Hemoglobin 14.1 G/DL (14.2-18.0) Hematocrit 43.2 % (42.0-52.0) Mean Corpuscular Volume 86 FL (80-99) Mean Corpuscular Hemoglobin 28.0 PG (27.0-31.0) Mean Corpuscular Hemoglobin Concent 32.6 G/DL (32.0-36.0) Red Cell Distribution Width 12.0 % (11.6-14.8) Platelet Count 208 K/UL (150-450) Mean Platelet Volume 7.3 FL (6.5-10.1) Neutrophils (%) (Auto) 76.1 % (45.0-75.0) Lymphocytes (%) (Auto) 15.7 % (20.0-45.0) Monocytes (%) (Auto) 5.4 % (1.0-10.0) Eosinophils (%) (Auto) 1.8 % (0.0-3.0) Basophils (%) (Auto) 1.0 % (0.0-2.0) Sodium Level 138 MMOL/L (136-145) Potassium Level 3.6 MMOL/L (3.5-5.1) Chloride Level 103 MMOL/L (98-107) Carbon Dioxide Level 25 MMOL/L (21-32) Anion Gap 10 mmol/L (5-15) Blood Urea Nitrogen 51 mg/dL (7-18) Creatinine 8.5 MG/DL (0.55-1.30) Estimat Glomerular Filtration Rate 8.5 mL/min (>60) Glucose Level 148 MG/DL (74-106) Lactic Acid Level 1.30 mmol/L (0.4-2.0) Calcium Level 8.8 MG/DL (8.5-10.1) Total Bilirubin 0.3 MG/DL (0.2-1.0) Aspartate Amino Transf (AST/SGOT) 18 U/L (15-37) Alanine Aminotransferase (ALT/SGPT) 28 U/L (12-78) Alkaline Phosphatase 52 U/L (46-116) Total Creatine Kinase 285 U/L (26-308) Creatine Kinase MB 2.1 NG/ML (0.0-3.6) Creatine Kinase MB Relative Index 0.7 Troponin I 0.000 ng/mL (0.000-0.056) Total Protein 6.8 G/DL (6.4-8.2) Albumin 3.1 G/DL (3.4-5.0) Globulin 3.7 g/dL Albumin/Globulin Ratio 0.8 (1.0-2.7) Lipase 627 U/L (73-393) EKG Diagnostic Results Rate: bradycardiac Rhythm: NSR - 57 ST Segments: no acute changes Rhythm Strip Diag. Results EP Interpretation: yes Rhythm: NSR, no PVC's Last Vital Signs Date Time Temp Pulse Resp B/P (MAP) Pulse Ox O2 Delivery O2 Flow Rate FiO2 11/22/17 05:00 97.6 66 18 93/60 100 Room Air 97.6 Status: unchanged Disposition: XFER SHT-TRM HOSP Condition: Serious Referrals: NOT CHOSEN IPA/,REFERRING (PCP) Moshe Thurston MD Nov 22, 2017 07:33
[2017-11-22 09:40] LABS: BILIRUBIN, URINE NEGATIVE (NEGATIVE); COLOR,URINE PALE YELLOW; GLUCOSE, URINE (UA) NEGATIVE (NEGATIVE); KETONES,URINE NEGATIVE (NEGATIVE); LEUKOCYTE ESTERASE ,URINE 1+ (NEGATIVE); NITRITE,URINE NEGATIVE (NEGATIVE); PH,URINE 5 (4.5-8.0); PROTEIN,URINE 2+ (NEGATIVE); UROBILINOGEN,URINE NORMAL MG/DL (0.0-1.0)
[2017-11-22 09:46] LABS: APPEARANCE,URINE SLIGHTLY CLOUDY
[2017-11-22 10:00] VITALS: BP 97/61
[2017-11-22 11:13] VITALS: BP 97/61
--- NOTE | 2017-11-22 11:37 | Diagnostic Imaging Report ---
Indication: Shortness of breath Technique: One view of the chest Comparison: none Findings: Lungs and pleural spaces are clear. Heart size is normal Impression: No acute process
--- NOTE | 2017-11-23 13:37 | Cardiology Report ---
APPROVED REPORT EKG Measurement Heart [id number] Sinus bradycardia Septal infarct, age undetermined T wave abnormality, consider inferior ischemia Abnormal ECG
== END 2017-11-22 11:15 | disposition short-term general hospital (02) ==
LOC: EDBD 04:22 → EMR 05:45
DX: K85.90 Acute pancreatitis without necrosis or infection, unspecified (principal); I12.0 Hypertensive chronic kidney disease with stage 5 chronic kidney disease or end stage renal disease; N18.6 End stage renal disease; Z99.2 Dependence on renal dialysis; J45.909 Unspecified asthma, uncomplicated
CPT/HCPCS: 36415; 71045; 80053; 81003; 82550; 82553; 83605; 83690; 84484; 85025; 87040; 93005; 99283